=== PATIENT | male | born 1945 | race Caucasian/White ===

== ENCOUNTER 2019-04-06 05:59 | Inpatient (IN) | payer MEDICARE, BC, SELFPAY ==
[2019-03-31 10:52] VITALS: BMI 28.3
[2019-04-06] VITALS (12 sets, daily range): BP systolic 101–145; BP diastolic 49–81; PULSE 75–115; RESP 13–20; TEMP 35.9–37.5; O2SAT 93–96; BMI 28.3
--- NOTE | 2019-04-06 06:00 | DI.RAD.S_ITS ---
PROCEDURE: XR SHOULDER RT 1V INDICATIONS: post op films TECHNIQUE: Single frontal view of the shoulder was acquired. COMPARISON: None. FINDINGS: Bones: No fractures or dislocations, after right total shoulder arthroplasty. No suspicious bony lesions. Visualized ribs appear intact. Soft tissues: No suspicious soft tissue calcifications. IMPRESSION: Normal alignment established after right total shoulder arthroplasty. Dictated by: Andre Edwards M.D. on 04/06/2019 at 11:30 Approved by: Andre Edwards M.D. on 04/06/2019 at 11:31
[2019-04-06] MEDS: LACTATED RINGERS 1,000 ML 42 ML IV ×2 (07:00→09:20)
--- NOTE | 2019-04-06 07:46 | PM.PREOP ---
Pre-operative Note Interval Note History & Physical reviewed/Exam performed by Physician: Yes Changes to H&P: No
--- NOTE | 2019-04-06 07:47 | PM.OP.1 ---
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 Radiographic studies have revealed changes consistent with a massive rotator cuff tear and arthritis. They have elected to proceed with reverse total shoulder replacement after discussion of the risks benefits and alternatives. Risks discussed included but were not limited to: Failure to improve, instability, infection, nerve damage, deep venous thrombosis, pulmonary embolism, stroke, coma, myocardial infarction and . Surgeon: Allen Espinal Surveyor Rod Helper: Anne-Marie Gallagher Click Yes if Unassisted: No Anesthesia Type: General, Peripheral nerve block and Local Operative Notes Findings: Massive rotator cuff tear with significant arthritic change in the right shoulder. Closure Type: primary Specimen(s): none sent Prosthetic devices, grafts, tissues, transplants, or devices: Implants used in this procedure were manufactured by the [employer] and included an RSP reverse total shoulder system with a size 16 stem with a size 36 mm +4 socket insert, a 36 mm neutral glenoid head with retaining screw, a 30 mm RSP glenoid base plate with 4 locking screws measuring 34, 22, 14 and 14 mm in length. Applied: implant(s) Estimated Blood Loss (mL): 200 Blood products transfused: none Procedure in detail: The patient was seen in the preoperative area where they identified the right shoulder as the operative site and this was marked with my initials. They received preoperative antibiotics and underwent the induction of an interscalene block. They were taken to the operating room and placed on the operating room table in a supine position with the underwent the induction of a general anesthetic. There were then repositioned in the ?beach chair? position using a dedicated positioner. All pressure points were well padded. The knees were slightly bent to prevent tension on the sciatic nerves. The right arm was prepared from the fingertips to the base of the neck with ChloraPrep in the usual fashion and draped through sterile drapes. An approximately 15 cm incision was created starting at the clavicle just above the coracoid and going to the deltoid insertion. The deltopectoral interval was used to access the shoulder taking the vein to the medial side. The vein was protected throughout the case. The upper 1 cm of the pectoralis major was released. The biceps groove was identified and used as a guide to releasing the minimal remaining subscapularis. The shoulder was dislocated and a proximal humeral osteotomy performed using an extramedullary guide. A proximal humeral protector was then placed. Retractors were placed access the glenoid. There was no repairable subscapularis to release. The soft tissues were removed circumferentially around the glenoid with care being taken to avoid injury to the axillary nerve. The guide was used to drill the guide hole in the center of the inferior glenoid. The tap was placed and used as a guide for the reamer. The tap was then removed and the glenoid base plate inserted. The peripheral locking screws were then placed through the appropriate guide. A trial glenoid head was applied. We then turned our attention to the humerus. The proximal humeral protector was removed. Cylindrical reamers were used to size the canal. Broaching was then performed beginning with a small broach and working up until a line to line fit with the reamer was obtained. The guide for the proximal metaphyseal reamer was then applied and the metaphysis was reamed appropriately. The trial metaphyseal portion of the body was then applied to the broach. Trial reductions were performed and the size of the glenoid head and the cup were optimized. Stability was checked in maximal internal and external rotation and range of motion was checked to allow access to the top of the head, internal rotation to an excess of 50? in the ?scarecrow position? and the ability to reach the groin. The appropriate final prosthetic components were then opened. The glenoid head was impacted into position and checked for rotational and axial stability before placing the set screw. The humeral prosthetic was then impacted into position. The humeral cup was placed. The joint was relocated and irrigated. A deep drain was placed. The deltopectoral interval was reapproximated with 0 Vicryl. Subcutaneous layer was closed with interrupted 3-0 Vicryl and skin with a running 3 0 V lock suture. Subcutaneous tissues were then infiltrated with 0.5% Marcaine for postoperative pain control. An Aquacel Ag dressing was applied and the patient's arm was placed in a sling. The patient was then transferred to the recovery room in good condition having tolerated the procedure well. Complications: none Post-operative Condition: stable Disposition: PACU Plan for aftercare: The patient will be maintained in their sling for 6 weeks. They will be allowed to do pendulum exercises. They will be allowed to use a computer and eat with their hand in front of the body. They will be allowed to shower with the dressing in place. DVT prophylaxis will be with aspirin and sequential compression devices.
[2019-04-06] MEDS: MELOXICAM 7.5 MG TABLET 15 MG PO (07:53)
[2019-04-06] MEDS: ACETAMINOPHEN 325 MG TABLET 975 MG PO (07:53)
[2019-04-06] MEDS: PREGABALIN 75 MG CAPSULE PO (08:11)
[2019-04-06] MEDS: MIDAZOLAM 2 MG/2 ML VIAL (08:12)
[2019-04-06] MEDS: fentaNYL 100 MCG/2 ML INJ (08:12)
--- NOTE | 2019-04-06 08:13 | SUR.PREOP ---
Block start time [0759] . Monitoring initiated and maintained throughout procedure. Oxygen and medications given per anesthesiologist instructions. Patient remained stable throughout procedure, no adverse reactions noted. Block end time [0806].
[2019-04-06] MEDS: CEFAZOLIN 2 GM/100 ML FROZ.PIGGY IV (08:15)
[2019-04-06] MEDS: TRANEXAMIC ACID 1,000 MG VIAL 2000 MG INJ ×2 (08:35→09:46)
--- NOTE | 2019-04-06 08:46 | SUR.OPER ---
Beach chair with Schlein shoulder positioner. Lower body on padded OR bed. Head in foam padded head cradle, secured with straps. Non-operative arm secured <90 degrees abduction. Pillow under knees. Safety belt at thigh. Cloth tape over blanket over lower legs.
[2019-04-06] MEDS: BUPIVACAINE 0.5% W/ EPI (PF) VIAL 30 ML INJ (08:52)
[2019-04-06] MEDS: LACTATED RINGERS 1,000 ML 125 ML IV (11:59)
--- NOTE | 2019-04-06 13:03 | PC.NURSE ---
Ortho: Received from pacu s/p r tsa. Pt arouses easily, feels good, not having any pain, had a block. Sling is on and has a strong rt radial pulse. Can move fingers but has no feeling in them yet. Brisk cap refill. Instructed to call if he starts to have pain. SO is at bedside and is helping him in some of his adl's like eating. Diet anabelle w/out problems. No void since surgery. Cont w/poc.
--- NOTE | 2019-04-06 13:57 | PT.IIE ---
Current Diagnoses Primary osteoarthritis, right shoulder (04/06/19) Complete rotator cuff tear or rupture of right shoulder, not specified as traumatic (04/06/19) Surgery Performed Operation Date: 04/06/19 07:45 Actual Procedures p Total Shoulder Arthroplasty - Reverse(Right) - Allen Espinal MD Surgical History (Last Updated 03/31/19 @ 12:14 by Loli Mendoza RN) H/O vasectomy (Acute) History of lumbar fusion (Acute 08/05/17) History of lumbar fusion (Acute ~2008) History of surgery (Acute) Hx of appendectomy (Acute) Hx of cervical discectomy (Acute ~2012) Hx of heart artery stent (Acute) Hx of laminectomy (Acute ~2013) Hx of left knee surgery (Acute ~2002) Hx of repair of right rotator cuff (Acute ~2004) Hx of sinus surgery (Acute) Hx of tonsillectomy (Acute) S/P cervical spinal fusion (Acute ~2012) Medical History (Last Updated 03/31/19 @ 12:14 by Loli Mendoza RN) Anxiety (Acute) Constipation (Acute) Depression (Acute) Dyslexia (Acute) Elevated liver enzymes (Acute) Hearing loss (Acute) Insomnia (Acute) Lumbar stenosis (Acute) NSTEMI (non-ST elevation myocardial infarction) (Acute 10/31/14) Osteoarthritis (Acute) Pneumonia (Acute) Pulmonary HTN (Acute) Tremor (Acute) Physical Therapy Inpatient Evaluation/Re-Eval M1 PT/OT-IP Prior Functional Status Start: 04/06/19 11:54 Freq: NEEDED Status: Active Protocol: Document 04/06/19 13:30 AW (Rec: 04/06/19 13:57 AW [id number]) Medical Review Prior Functional Status Medical History Reviewed Yes Diet/Fluid Consistency Regular Communication WNL Mobility and Gait Independent with all mobilty, no assistive device, no limit to distance/time Activities of Daily Living and IADL's Painful dressing and bathing but independent with the exception of occasional help with washing his back in the shower. Social History Household Members significant other Living Arrangements House Number of Floors (Floors) One Floor Number of Stairs To Enter/Railing? 1 LUPE, no railing. Home Environment High Toilet Home Equipment Front Wheel Walker,Grab Bars Near Toilet Employment Status Retired Additional Social History Comment Pt is retired from law enforcement. He lives with his who is available and able to assist as needed without limitation. M2 PT-IP Current Condition Start: 04/06/19 11:54 Freq: NEEDED Status: Active Protocol: Document 04/06/19 13:30 AW (Rec: 04/06/19 13:57 AW [id number]) Physical Therapy Current Condition Current Condition Evaluation Date 04/06/19 Treatment Diagnosis R reverse TSA, impaired ADL's, weakness, limited ROM Precautions Shoulder Precautions Sling,PROM,Internal Rotation to Body,No External Rotation, No Abduction,Forward Flexion to 90 degrees,Pendulums Other Precautions Shoulder sling at all times Weight Bearing Status Weight Bearing Status Full Weight Bearing M3 PT-IP Subjective Start: 04/06/19 11:54 Freq: NEEDED Status: Active Protocol: Document 04/06/19 13:30 AW (Rec: 04/06/19 13:57 AW [id number]) Subjective Physical Therapy Visit Type Type Treatment Note Visit Start Time 12:50 Visit Stop Time 13:27 Total Visit Minutes 37 Notes Pt's spouse in room, participated in caregiver training Number of CUSTOMER ACQUISITION MANAGER Visits 0 Physical Therapy Visit Comments Patient Comments Pt is slightly groggy but willing to participate with therapy. Patient Goals Pt hopes to discharge home with spouse assist. Therapy Pain Assessment Pain When Pain Assessed During Mobility Pain Present Pain Present Denied Pain M4 PT-IP Mobility and Gait Start: 04/06/19 11:54 Freq: NEEDED Status: Active Protocol: Document 04/06/19 13:30 AW (Rec: 04/06/19 13:57 AW [id number]) PT-Bed Mobility Assessment Rolling Level of Assist Standby Assistance Supine to Sit Supine to Sit Standby Assistance Scooting Scooting to Edge of Bed Standby Assistance Scooting Up and Down in Bed Standby Assistance PT-Transfer Assessment Sit to and From Stand Sit to and from Stand Standby Assistance,Contact Guard Assistance,1 Person Assistance Equipment Transfer Assistive Device Gait Belt Orthotic/Prosthetic Devices or Brace: Yes Transfers Transfer Destination Chair Transfer Technique pt ambulated without assistive device Transfer Ability Level of Assist Standby Assistance,Contact Guard Assistance Comments Mobility Comments Pt performed bed mobility SBA. He was able to sit EOB without UE support. He required SBA>CGA for sit<> stand and transfer to chair. Gait Assessment Gait Gait Assistance Required: Contact Guard Assist Distance (Feet) 100 Able to Maintain Weight Bearing Status Yes During Gait Assistive Devices Orthotic/Prosthetic Devices or Brace: Yes Gait Deviations General Gait Pattern Antalgic,Decreased Stride Length,Decreased Feet Clearance Factors Limiting Gait Function Factors Limiting Gait Function Decreased Activity Tolerance, Decreased Sensation,Decreased Strength,Limited Range of Motion,Poor Balance Comments Gait Comments Pt ambulated 60 feet using IV pole for support SBA and another 40 feet without support CGA. Without support, pt's gait was more erratic and unsteady. Stair Climbing Assessment Comments Stair Climbing Comments Not assessed. PT-Balance Assessment Sitting Balance and Reactions Static Sitting Balance Ability Good Dynamic Sitting Balance Ability Good Standing Balance and Reactions Static Standing Balance Ability Good Dynamic Standing Balance Ability Fair Device Used no AD M5 PT-IP Objective Assessments Start: 04/06/19 11:54 Freq: NEEDED Status: Active Protocol: Document 04/06/19 13:30 AW (Rec: 04/06/19 13:57 AW [id number]) Orientation Orientation/Cognition Level of Alertness Confusional State Orientation Name,Year,Place,Situation Language Function Ability No Deficits Noted Safety Awareness Decreased Safety Awareness Memory Description No Deficits Noted Comments Pt appears groggy from anesthesia which his confirms. Gross Range of Motion Upper Extremity ROM Assessment Right Impaired Lower Extremity ROM Assessment Within Functional Limits Strength Upper Extremity Strength Assessment Right Impaired Lower Extremity Strength Assessment Within Functional Limits Comments Strength Comments LUE and BLE strength grossly 5 /5 Sensation Assessment Sensation Gross Sensation Right UE Impaired Light Touch Impaired Comments Sensation Comments RUE light touch sensation impaired in axillary nerve distribution M6 PT-IP Treatment Start: 04/06/19 11:54 Freq: NEEDED Status: Active Protocol: Document 04/06/19 13:30 AW (Rec: 04/06/19 13:57 AW [id number]) Physical Therapy Treatment Education Education Provided Precautions,Weight Bearing Status,Post-Op Packet,Safety Brace Education Donning,Naylor,Patient, Caregiver Other Treatments Other Treatment Performed Pt and spouse educated on sling adjustment with mirror for visual feedback. Spouse able to assist. M7 PT-IP Assessment and Plan Start: 04/06/19 11:54 Freq: NEEDED Status: Active Protocol: Document 04/06/19 13:30 AW (Rec: 04/06/19 13:57 AW [id number]) PT Summary Assessment and Plan Potential Rehabilitation Potential Excellent Status of Condition at Evaluation Evolving Summary Impairments Pain,ROM,Strength,Balance, Sensation,Transfers,Gait, Activity Tolerance Assessment Summary Pt is a 73 yo man seen for PT evaluation on POD0 following right reverse TSA. PLOF: Pt was independent in all regards with the exception of requiring occasional assist with washing his back. CLOF: Pt requried no more than CGA due to unsteadiness without IV pole support during gait. PT anticipates he will meet the functional goals of this plan of care and be safe to discharge home with spouse assist and outpatient PT when cleared medically. Goals Bed Mobility Goal Independent Transfer Goal Independent Gait Goal Independent Gait Distance 250 Other Goals up/down 1 step without railing SBA Days to Meet Goals 1 Frequency of Treatment Frequency Of Treatment Twice a Day Treatment Plan Physical Therapy Treatment Plan Bed Mobility Training,Transfer Training,Gait Training, Therapeutic Exercise,Balance Retraining,Post Op Education, Discharge Planning,Hot or Cold Pack,Neuromuscular Re-ed, Coordination Retraining,Manual Therapy Other Recommendations and Next Treatment assess gait without assistive Focus device, trial step, review precautions, introduce pendulums/PROM Recommendations To Nursing Amount of Assist Needed Standby Assistance Discharge Recommendations PT Discharge Recommendations Home with Assistance, Outpatient PT Equipment Needed for Home Before states she will acquire a Discharge shower chair
[2019-04-06] MEDS: CANDESARTAN 16 MG TABLET 8 MG PO (17:24)
[2019-04-06] MEDS: SPIRONOLACTONE 50 MG TABLET PO (17:24)
[2019-04-06] MEDS: DULOXETINE 30 MG CAPSULE PO (17:24)
[2019-04-06] MEDS: ASPIRIN EC 81 MG TABLET PO (20:32)
[2019-04-06] MEDS: DOCUSATE 100 MG CAPSULE PO (20:32)
[2019-04-06] MEDS: TAMSULOSIN 0.4 MG CAPSULE PO (20:32)
[2019-04-06] MEDS: HYDROCODONE/ACET 5/325 TABLET 2 TAB PO (21:19)
[2019-04-06] MEDS: LORazepam 0.5 MG TABLET PO (23:58)
[2019-04-07] MEDS: HYDROCODONE/ACET 5/325 TABLET 2 TAB PO ×4 (01:31→17:33)
--- NOTE | 2019-04-07 02:00 | PC.NURSE ---
Addendum entered by Vanessa Ly R.N. 04/07/19 06:26: Dr Garcia returned call and informed of UOP/bladder scan. New order to in/out cath if bladder scan > 600cc Addendum entered by Vanessa Ly R.N. 04/07/19 06:20: Patient urinated only 100cc this morning with bladder scan of 454. Denies feeling any pressure or discomfort. Dr Garcia paged Addendum entered by Vanessa Ly R.N. 04/07/19 05:31: Complains of 6/10 pain in right shoulder although has been able to sleep past couple hours. Requested IV Dilaudid; medicated as requested Addendum entered by Vanessa Ly R.N. 04/07/19 02:46: States pain is only down to 5/10 and requesting more pain medication; medicated with Dilaudid, ice reapplied and bed tilted to left to decrease pressure to shoulder. Addendum entered by Vanessa Ly R.N. 04/07/19 02:12: 0131 Patient complaining of 6/10 pain so medicated with Vicodin. Original Note: 0010 Patient is alert and oriented. Breath sounds CTA with RA sat of 94%. HRR but tachy at 104 bpm; patient states medication used in surgery causes his heart to pound causing anxiety which he is experiencing now so medicated with Ativan. Denies nausea. BT present and is passing flatus. Denies dysuria, frequency or urgency with urination. Is able to shift self in bed and requesting to lie only on back and not be turned onto side. Aquacel dressing to right shoulder is CDI. States pain is 2/10 and tolerable; does have ice pack to area. CMS intact except for residual tingling in tip of right thumb. Arm is in sling. Hemovac is intact and compressed. Wearing bilateral calf SCD's. Fall risk score is moderate and bed alarm is activated.
[2019-04-07] MEDS: HYDROMORPHONE 0.5 MG INJ IV ×3 (02:44→19:35)
[2019-04-07 02:49] VITALS: BP 126/58; PULSE 106; RESP 16; TEMP 37.7; O2SAT 93
[2019-04-07 05:57] LABS: Hematocrit 34.9 % (41-53); Mean Corpuscular HGB Conc 34.4 % (30-36); Mean Corpuscular Hemoglobin 31.9 PG (26-34); Platelet Count 279 X10^3/uL (150-400); Red Blood Cell Count 3.75 X10^6/uL (4.5-5.9); Red Cell Distribution Width 13.1 % (11.6-14.8); White Blood Cell Count 14.6 X10^3/uL (4.5-11.0)
--- NOTE | 2019-04-07 07:08 | PM.DS.1 ---
History of Present Illness History of Present Illness Date Patient Seen: 04/07/19 Time Patient Seen: 07:08 Chief complaint: [id number] Narrative: The history and physical is contained in the chart in a previously completed note. Please refer to this note for that information. Discharge Providers Provider Date of admission: 04/06/19 05:59 Discharge Date: 04/07/19 Consults: 04/06/19 11:20 Consult to Discharge Planning Routine Comment: Consult to Physical Therapy Evaluate & Treat Comment: Pendulum exercises, otherwise sling for right arm Physician Instructions: Evaluate and Treat Discharge provider: Allen Espinal MD Summary Hospital Course Discharge Diagnosis: 1. Right shoulder rotator cuff arthropathy 2. Urinary retention 3. Mild post hemorrhagic anemia 4. Mild postoperative leukocytosis Hospital Course: The patient was admitted to the hospital and taken directly to the operating room on April 06, 2019. He underwent a right reverse total shoulder replacement. He tolerated surgery well but on postoperative day 1 had complaints of ongoing discomfort requiring IV narcotics. The patient cannot use oxycodone due to constipation and the hydrocodone was not fully covering his pain as of yet. He also was having some urinary retention. At the time of this dictation the plan is for him to get up and walk around and to attempt to only use oral pain medication. If he is able to urinate after ambulating and his pain can be controlled on oral medication, he will be discharged today. Status at Discharge Cognitive/behavioral status at discharge: oriented Functional status at discharge: independent ambulation Overall status at discharge: patient is progressing back to baseline Time Spent with Patient Time spent: Less than 30 minutes Exam Vital Signs (past 8 hours): - 04/07/19 02:49 Temperature 99.9 F H Pulse Rate 106 H Respiratory Rate 16 Blood Pressure 126/58 L Pulse Oximetry 93 Oxygen Delivery Method Room Air Oxygen Flow Rate 0 Narrative Exam Narrative: Right shoulder wound is dressed with no drainage on the bandage. Light touch is intact in the radial, ulnar, median, muscular cutaneous and axillary nerve distributions. He can extend his thumb, abduct his thumb, abduct his fingers and can fire his biceps and deltoid. Objective Labs Result Diagrams: 04/07/19 05:25 Labs: Laboratory Results - last 24 hr 04/07/19 05:25 WBC 14.6 H RBC 3.75 L Hgb 12.0 L Hct 34.9 L MCV 93.0 MCH 31.9 MCHC 34.4 RDW 13.1 Plt Count 279 Discharge Plan Discharge Plan Patient Disposition: Home Discharge orders & Medications Prescriptions: New aspirin 81 mg Tablet,Delayed Release (Dr/Ec) 81 mg PO BID 42 Days Qty: 84 RF: 0 hydrocodone-acetaminophen 5-325 mg Tablet 2 tab PO Q4HR PRN (Reason: Pain, Moderate (4-6)) Qty: 40 RF: 0 Continued cyanocobalamin (vitamin B-12) [Vitamin B-12] 500 MCG lozenge 500 mcg PO QDAY Qty: 0 RF: 0 polyethylene glycol 3350 [Miralax] 17 GM powder in packet 17 gm PO QDAYP PRN (Reason: Constipation) Qty: 0 RF: 0 pantoprazole 40 MG tablet,delayed release (DR/EC) 40 mg PO QDAY Qty: 0 RF: 0 meloxicam 7.5 mg Tablet 7.5 mg PO DAILY RF: 0 tamsulosin 0.4 mg Capsule 0.4 mg PO BEDTIME RF: 0 hydrochlorothiazide 25 mg Tablet 25 mg PO QAM RF: 0 candesartan 8 mg Tablet 8 mg PO QPM RF: 0 spironolactone 50 mg Tablet 50 mg PO QPM RF: 0 duloxetine 30 mg Capsule,Delayed Release(Dr/Ec) 30 mg PO QPM RF: 0 Discontinued aspirin 81 MG tablet,delayed release (DR/EC) 81 mg PO QDAY Qty: 0 RF: 0 Follow up/Referrals: Allen Espinal MD [Physician] - 2 Weeks Discharge Health Status Multidrug resistant organism: No MDRO Diet/Activity/Treatments Diet: Diet as Tolerated and Regular Activity: Continue to wear your sling. You may use your right hand in front of your body below shoulder level. You may do pendulum exercises. Cold/Heat Therapy: Apply ice for 15 minutes every hour as needed for pain control. Skin/Wound/Dressing Care Report to your healthcare provider any signs of infection, such as:: chills, fever, night sweats, increased pain, unusual drainage and unusual redness Dressing: Leave the dressing intact until your follow-up appointment. Please call the office if the central strip of the dressing becomes saturated with either water or blood. You may shower with the dressing in place. Visit Report/Discharge Packet Instructions: How to Use a Sling, DI for Constipation, How to Prevent Falls, DI for Shoulder Replacement Stand Alone Forms: Surgery Discharge
[2019-04-07 07:40] VITALS: BP 119/69; PULSE 94; RESP 17; TEMP 37.2; O2SAT 95
[2019-04-07] MEDS: ASPIRIN EC 81 MG TABLET PO ×2 (08:39→21:02)
[2019-04-07] MEDS: POLYETHYLENE GLYCOL 3350 17 GM POWD.PACK PO (08:39)
[2019-04-07] MEDS: hydroCHLOROthiazide 25 MG TABLET PO (08:41)
[2019-04-07] MEDS: DOCUSATE 100 MG CAPSULE PO ×2 (08:41→21:02)
[2019-04-07] MEDS: PANTOPRAZOLE 40 MG TABLET PO (08:41)
[2019-04-07] MEDS: MELOXICAM 7.5 MG TABLET PO (08:41)
[2019-04-07] MEDS: CYANOCOBALAMIN (VITAMIN B-12) 500 MCG TABLET PO (08:41)
--- NOTE | 2019-04-07 11:25 | PT.IPTN ---
Current Diagnoses Primary osteoarthritis, right shoulder (04/06/19) Complete rotator cuff tear or rupture of right shoulder, not specified as traumatic (04/06/19) Surgery Performed Operation Date: 04/06/19 07:45 Actual Procedures p Total Shoulder Arthroplasty - Reverse(Right) - Allen Espinal MD Physical Therapy Treatment Note M2 PT-IP Current Condition Start: 04/06/19 11:54 Freq: NEEDED Status: Active Protocol: Document 04/06/19 13:30 AW (Rec: 04/06/19 13:57 AW [id number]) Physical Therapy Current Condition Current Condition Evaluation Date 04/06/19 Treatment Diagnosis R reverse TSA, impaired ADL's, weakness, limited ROM Precautions Shoulder Precautions Sling,PROM,Internal Rotation to Body,No External Rotation, No Abduction,Forward Flexion to 90 degrees,Pendulums Other Precautions Shoulder sling at all times Weight Bearing Status Weight Bearing Status Full Weight Bearing M3 PT-IP Subjective Start: 04/06/19 11:54 Freq: NEEDED Status: Active Protocol: Document 04/07/19 11:16 HH (Rec: 04/07/19 11:25 HH [id number]) Subjective Physical Therapy Visit Type Type Treatment Note Visit Start Time 09:20 Visit Stop Time 09:45 Total Visit Minutes 25 Notes co-tx with SPT Nathaly. attended last 5 mins of tx session. 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 Therapy Pain Assessment Pain When Pain Assessed During Mobility Pain Present Pain Present Denied Pain M4 PT-IP Mobility and Gait Start: 04/06/19 11:54 Freq: NEEDED Status: Active Protocol: Document 04/07/19 11:16 HH (Rec: 04/07/19 11:25 [id number]) PT-Transfer Assessment Sit to and From Stand Sit to and from Stand Independent Equipment Transfer Assistive Device None Orthotic/Prosthetic Devices or Brace: Yes Transfers Transfer Destination Chair Transfer Technique pt ambulated without assistive device Transfer Ability Level of Assist Independent Comments Mobility Comments Pt up in chair upon assessment . Able to stand up multiple times with/without use of LUE to push off. He was very steady and no signs of LOB. Gait Assessment Gait Gait Assistance Required: Independent Distance (Feet) 400 Able to Maintain Weight Bearing Status Yes During Gait Assistive Devices Orthotic/Prosthetic Devices or Brace: Yes Gait Deviations General Gait Pattern Within Normal Limits Comments Gait Comments Pt amb the entire AC floor without AD. Appears very steady with normal gait pattern Stair Climbing Assessment Evaluation Level of Assist On Stairs Standby Assistance Devices Stair Climbing Assistive Devices None Technique/Endurance Stair Climbing Direction Ascend and Descend Stair Climbing Technique Step Over Step,Step to Step Number of Steps Climbed 3 Stair Climbing Set # Repetitions (reps) 3 Comments Stair Climbing Comments Pt did first set using LUE on handrail with step over pattern. 2nd and 3rd set without AD but step to pattern for descent. M5 PT-IP Objective Assessments Start: 04/06/19 11:54 Freq: NEEDED Status: Active Protocol: Document 04/06/19 13:30 AW (Rec: 04/06/19 13:57 AW [id number]) Orientation Orientation/Cognition Level of Alertness Confusional State Orientation Name,Year,Place,Situation Language Function Ability No Deficits Noted Safety Awareness Decreased Safety Awareness Memory Description No Deficits Noted Comments Pt appears groggy from anesthesia which his confirms. Gross Range of Motion Upper Extremity ROM Assessment Right Impaired Lower Extremity ROM Assessment Within Functional Limits Strength Upper Extremity Strength Assessment Right Impaired Lower Extremity Strength Assessment Within Functional Limits Comments Strength Comments LUE and BLE strength grossly 5 /5 Sensation Assessment Sensation Gross Sensation Right UE Impaired Light Touch Impaired Comments Sensation Comments RUE light touch sensation impaired in axillary nerve distribution M6 PT-IP Treatment Start: 04/06/19 11:54 Freq: NEEDED Status: Active Protocol: Document 04/06/19 13:30 AW (Rec: 04/06/19 13:57 AW [id number]) Physical Therapy Treatment Education Education Provided Precautions,Weight Bearing Status,Post-Op Packet,Safety Brace Education [place],Patient, Caregiver Other Treatments Other Treatment Performed Pt and spouse educated on sling adjustment with mirror for visual feedback. Spouse able to assist. M7 PT-IP Assessment and Plan Start: 04/06/19 11:54 Freq: NEEDED Status: Active Protocol: Document 04/07/19 11:16 HH (Rec: 04/07/19 11:25 HH [id number]) PT Summary Assessment and Plan Potential Rehabilitation Potential Excellent Status of Condition at Evaluation Stable Summary Impairments Pain,ROM,Strength Progress Towards Goals Safe For Discharge Assessment Summary Pt progress very well with mobility and does need any AD/ assistance at this point. Educated pt on pendulum and CG training for kecia/doff of his arm sling. Both appear very receptive and able to recall post op precautions. Recommended nursing for his independent mobility except SBA for toileting/ showering. Pt is now d/c from PT and anticipate him to discharge home with spouse assist and outpatient PT when cleared medically. Frequency of Treatment Frequency Of Treatment Discharge Recommendations To Nursing Amount of Assist Needed Independent,Standby Assistance Discharge Recommendations PT Discharge Recommendations Home with Assistance, Outpatient PT Equipment Needed for Home Before states she will acquire a Discharge shower chair
--- NOTE | 2019-04-07 11:28 | PT.IPTN ---
Current Diagnoses Primary osteoarthritis, right shoulder (04/06/19) Complete rotator cuff tear or rupture of right shoulder, not specified as traumatic (04/06/19) Surgery Performed Operation Date: 04/06/19 07:45 Actual Procedures p Total Shoulder Arthroplasty - Reverse(Right) - Allen Espinal MD Physical Therapy Treatment Note M2 PT-IP Current Condition Start: 04/06/19 11:54 Freq: NEEDED Status: Active Protocol: Document 04/06/19 13:30 AW (Rec: 04/06/19 13:57 AW [id number]) Physical Therapy Current Condition Current Condition Evaluation Date 04/06/19 Treatment Diagnosis R reverse TSA, impaired ADL's, weakness, limited ROM Precautions Shoulder Precautions Sling,PROM,Internal Rotation to Body,No External Rotation, No Abduction,Forward Flexion to 90 degrees,Pendulums Other Precautions Shoulder sling at all times Weight Bearing Status Weight Bearing Status Full Weight Bearing M3 PT-IP Subjective Start: 04/06/19 11:54 Freq: NEEDED Status: Active Protocol: Document 04/07/19 09:20 (Rec: 04/07/19 11:25 [id number]) Subjective Physical Therapy Visit Type Type Treatment Note Visit Start Time 09:20 Visit Stop Time 09:45 Total Visit Minutes 25 Notes co-tx with SPT Nathaly. attended last 5 mins of tx session. Number of WOOL HANDLER Visits 0 Physical Therapy Visit Comments Patient Comments Im getting better today and able to move around. Therapy Pain Assessment Pain When Pain Assessed During Mobility Pain Present Pain Present Denied Pain M4 PT-IP Mobility and Gait Start: 04/06/19 11:54 Freq: NEEDED Status: Active Protocol: Document 04/07/19 09:20 (Rec: 04/07/19 11:25 [id number]) PT-Transfer Assessment Sit to and From Stand Sit to and from Stand Independent Equipment Transfer Assistive Device None Orthotic/Prosthetic Devices or Brace: Yes Transfers Transfer Destination Chair Transfer Technique pt ambulated without assistive device Transfer Ability Level of Assist Independent Comments Mobility Comments Pt up in chair upon assessment . Able to stand up multiple times with/without use of LUE to push off. He was very steady and no signs of LOB. Gait Assessment Gait Gait Assistance Required: Independent Distance (Feet) 400 Able to Maintain Weight Bearing Status Yes During Gait Assistive Devices Orthotic/Prosthetic Devices or Brace: Yes Gait Deviations General Gait Pattern Within Normal Limits Comments Gait Comments Pt amb the entire AC floor without AD. Appears very steady with normal gait pattern Stair Climbing Assessment Evaluation Level of Assist On Stairs Standby Assistance Devices Stair Climbing Assistive Devices None Technique/Endurance Stair Climbing Direction Ascend and Descend Stair Climbing Technique Step Over Step,Step to Step Number of Steps Climbed 3 Stair Climbing Set # Repetitions (reps) 3 Comments Stair Climbing Comments Pt did first set using LUE on handrail with step over pattern. 2nd and 3rd set without AD but step to pattern for descent. M5 PT-IP Objective Assessments Start: 04/06/19 11:54 Freq: NEEDED Status: Active Protocol: Document 04/06/19 13:30 AW (Rec: 04/06/19 13:57 AW [id number]) Orientation Orientation/Cognition Level of Alertness Confusional State Orientation Name,Year,Place,Situation Language Function Ability No Deficits Noted Safety Awareness Decreased Safety Awareness Memory Description No Deficits Noted Comments Pt appears groggy from anesthesia which his confirms. Gross Range of Motion Upper Extremity ROM Assessment Right Impaired Lower Extremity ROM Assessment Within Functional Limits Strength Upper Extremity Strength Assessment Right Impaired Lower Extremity Strength Assessment Within Functional Limits Comments Strength Comments LUE and BLE strength grossly 5 /5 Sensation Assessment Sensation Gross Sensation Right UE Impaired Light Touch Impaired Comments Sensation Comments RUE light touch sensation impaired in axillary nerve distribution M6 PT-IP Treatment Start: 04/06/19 11:54 Freq: NEEDED Status: Active Protocol: Document 04/07/19 09:20 (Rec: 04/07/19 11:28 [id number]) Physical Therapy Treatment Exercises Exercises Shoulder Pendulums Education Education Provided Precautions,Weight Bearing Status,Post-Op Packet,Safety Brace Education Donning,[place],Patient, Caregiver Other Treatments Other Treatment Performed educated pt and CG on donning/ doffing arm sling, shd pendulums and post op precautions. M7 PT-IP Assessment and Plan Start: 04/06/19 11:54 Freq: NEEDED Status: Active Protocol: Document 04/07/19 09:20 HH (Rec: 04/07/19 11:25 [id number]) PT Summary Assessment and Plan Potential Rehabilitation Potential Excellent Status of Condition at Evaluation Stable Summary Impairments Pain,ROM,Strength Progress Towards Goals Safe For Discharge Assessment Summary Pt progress very well with mobility and does need any AD/ assistance at this point. Educated pt on pendulum and CG training for kecia/doff of his arm sling. Both appear very receptive and able to recall post op precautions. Recommended nursing for his independent mobility except SBA for toileting/ showering. Pt is now d/c from PT and anticipate him to discharge home with spouse assist and outpatient PT when cleared medically. Frequency of Treatment Frequency Of Treatment Discharge Recommendations To Nursing Amount of Assist Needed Independent,Standby Assistance Discharge Recommendations PT Discharge Recommendations Home with Assistance, Outpatient PT Equipment Needed for Home Before states she will acquire a Discharge shower chair
[2019-04-07 11:35] VITALS: BP 148/73; PULSE 88; RESP 16; TEMP 36.9; O2SAT 95
[2019-04-07] MEDS: SODIUM CHLORIDE 0.9% FLUSH 10 ML IV ×2 (12:39→21:02)
--- NOTE | 2019-04-07 15:00 | CM.IDA ---
Initial DCP Assessment Note: Pt is a 73 yo male, resident of [place], [place] near [place]. Pt is POD#1 from shoulder surgery w/ Dr Espinal. PCP: ? Payer: Medicare/ [facility] Reviewed chart, pt has been cleared for return home w/spouse to assist when medically cleared. Met w/pt and spouse, explained role. Pt thinks he will be DC tomorrow and feels confident about returning home once his pain is better controlled. Spouse agrees, once she obtains a shower chair, she feels they have all they need to return home. P: DC home w/spouse via pov, no SW needs identified at this time. RAFAT Huang
[2019-04-07 16:00] VITALS: BP 126/58; PULSE 89; RESP 20; TEMP 37.1; O2SAT 94
[2019-04-07] MEDS: CANDESARTAN 16 MG TABLET 8 MG PO (17:33)
[2019-04-07] MEDS: DULOXETINE 30 MG CAPSULE PO (17:33)
[2019-04-07] MEDS: SPIRONOLACTONE 50 MG TABLET PO (17:33)
[2019-04-07 20:12] VITALS: BP 136/67; PULSE 81; RESP 18; TEMP 37.1
[2019-04-07] MEDS: TAMSULOSIN 0.4 MG CAPSULE PO (21:02)
[2019-04-08] VITALS: BP 110/64; PULSE 90; RESP 18; TEMP 36.9; O2SAT 93
[2019-04-08] MEDS: HYDROCODONE/ACET 5/325 TABLET 2 TAB PO ×3 (00:02→12:09)
[2019-04-08 04:46] VITALS: BP 127/68; PULSE 90; RESP 16; TEMP 37.2; O2SAT 92
--- NOTE | 2019-04-08 07:10 | P.DS_ITS ---
History of Present Illness History of Present Illness Date Patient Seen: 04/08/19 Time Patient Seen: 07:10 Chief complaint: [id number] Narrative: The history and physical is contained in the chart in a previously completed note. Please refer to this note for that information. Discharge Providers Provider Date of admission: 04/06/19 05:59 Discharge Date: 04/08/19 Consults: 04/06/19 11:20 Consult to Discharge Planning Routine Comment: Consult to Physical Therapy Evaluate & Treat Comment: Pendulum exercises, otherwise sling for right arm Physician Instructions: Evaluate and Treat Discharge provider: Allen Espinal MD Summary Hospital Course Discharge Diagnosis: 1. Right rotator cuff tear arthropathy 2. Postoperative urinary retention 3. Mild post hemorrhagic anemia 4. Mild postoperative leukocytosis Hospital Course: The patient was admitted to the hospital and taken directly to the operating room on April 06 2019. He underwent a right reverse total shoulder replacement. This was without complication. On postoperative day 1 he was having marginal pain control and difficulty urinating. Initially the plan was to send him home on postoperative day 1 but these problems continued. On postoperative day 2 his pain was better controlled and he was urinating spontaneously. It was felt he was ready for discharge. Status at Discharge Cognitive/behavioral status at discharge: oriented Functional status at discharge: independent ambulation Overall status at discharge: patient is progressing back to baseline Time Spent with Patient Time spent: Less than 30 minutes Exam Vital Signs (past 8 hours): - 04/08/19 00:00 04/08/19 04:46 Temperature 98.4 F 99.0 F Pulse Rate 90 90 Respiratory Rate 18 16 Blood Pressure 110/64 127/68 Pulse Oximetry 93 92 Oxygen Delivery Method Room Air Oxygen Flow Rate 0 Narrative Exam Narrative: Right shoulder wound is dressed with no drainage on the bandage. Light touch is intact throughout the right upper extremity. Objective Labs Result Diagrams: 04/07/19 05:25 Discharge Plan Discharge Plan Patient Disposition: Home Discharge orders & Medications Prescriptions: New aspirin 81 mg Tablet,Delayed Release (Dr/Ec) 81 mg PO BID 42 Days Qty: 84 RF: 0 hydrocodone-acetaminophen 5-325 mg Tablet 2 tab PO Q4HR PRN (Reason: Pain, Moderate (4-6)) Qty: 40 RF: 0 Continued cyanocobalamin (vitamin B-12) [Vitamin B-12] 500 MCG lozenge 500 mcg PO QDAY Qty: 0 RF: 0 polyethylene glycol 3350 [Miralax] 17 GM powder in packet 17 gm PO QDAYP PRN (Reason: Constipation) Qty: 0 RF: 0 pantoprazole 40 MG tablet,delayed release (DR/EC) 40 mg PO QDAY Qty: 0 RF: 0 meloxicam 7.5 mg Tablet 7.5 mg PO DAILY RF: 0 tamsulosin 0.4 mg Capsule 0.4 mg PO BEDTIME RF: 0 hydrochlorothiazide 25 mg Tablet 25 mg PO QAM RF: 0 candesartan 8 mg Tablet 8 mg PO QPM RF: 0 spironolactone 50 mg Tablet 50 mg PO QPM RF: 0 duloxetine 30 mg Capsule,Delayed Release(Dr/Ec) 30 mg PO QPM RF: 0 Discontinued aspirin 81 MG tablet,delayed release (DR/EC) 81 mg PO QDAY Qty: 0 RF: 0 Follow up/Referrals: Allen Espnial MD [Physician] - 2 Weeks Discharge Health Status Multidrug resistant organism: No MDRO Diet/Activity/Treatments Diet: Diet as Tolerated and Regular Activity: Continue to wear your sling. You may use your right hand in front of your body below shoulder level. You may do pendulum exercises. Cold/Heat Therapy: Apply ice for 15 minutes every hour as needed for pain control. Skin/Wound/Dressing Care Report to your healthcare provider any signs of infection, such as:: chills, fever, night sweats, increased pain, unusual drainage and unusual redness Dressing: Leave the dressing intact until your follow-up appointment. Please ca ll the office if the central strip of the dressing becomes saturated with either water or blood. You may shower with the dressing in place. Visit Report/Discharge Packet Instructions: How to Use a Sling, DI for Constipation, How to Prevent Falls, DI for Shoulder Replacement Stand Alone Forms: Surgery Discharge Visit Report Forms: Patient Portal/API, Stroke Signs & Symptoms
[2019-04-08 07:40] VITALS: BP 124/76; PULSE 102; RESP 16; TEMP 37; O2SAT 92
--- NOTE | 2019-04-08 08:18 | PC.NURSE ---
Assess-Patient A&Ox3 this morning. R.shoulder dressing (aquacel) is cdi. Pt has a pad under his r.armpit to help soak up moisture so that he does not develop a yeast infection. Up adlib. Eating breakfast now and will give patient his pain medication and regular am meds after he takes a few bites of breakfast. Patient will be discharging home today.
[2019-04-08] MEDS: MELOXICAM 7.5 MG TABLET PO (08:35)
[2019-04-08] MEDS: DOCUSATE 100 MG CAPSULE PO (08:35)
[2019-04-08] MEDS: CYANOCOBALAMIN (VITAMIN B-12) 500 MCG TABLET PO (08:35)
[2019-04-08] MEDS: ASPIRIN EC 81 MG TABLET PO (08:36)
[2019-04-08] MEDS: PANTOPRAZOLE 40 MG TABLET PO (08:36)
[2019-04-08] MEDS: hydroCHLOROthiazide 25 MG TABLET PO (08:36)
[2019-04-08] MEDS: SODIUM CHLORIDE 0.9% FLUSH 10 ML IV (08:36)
== END 2019-04-08 13:14 | disposition home or self-care (01) | DRG 483 ==
PROVIDERS: Admitting Provider Orthopaedic Surgery; Visit Provider Orthopaedic Surgery
PROC: 0RRJ00Z Replacement of Right Shoulder Joint with Reverse Ball and Socket Synthetic Substitute, Open Approach (ICD-10-PCS; CPT 23472; principal; 2019-04-06 07:45)
DX: M75.121 Complete rotator cuff tear or rupture of right shoulder, not specified as traumatic (principal); M19.011 Primary osteoarthritis, right shoulder; I10 Essential (primary) hypertension; I25.10 Atherosclerotic heart disease of native coronary artery without angina pectoris; R33.9 Retention of urine, unspecified
CPT/HCPCS: 36415; 73020; 85027; 97161; 97530; 97535; C1776; J0690; J1100; J1170; J2250; J2405; J2704; J3010